=== PATIENT | female | born 2000 ===

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

== ENCOUNTER 2022-02-04 06:09 | Inpatient (IN) | payer OTHER ==
--- NOTE | 2022-02-04 07:14 | History and Physical Report ---
History of Present Illness Date of examination: 02/04/22 Date of admission: 02/04/2022 Chief complaint: Contractions History of present illness: 21-year-old at 42-4/7 weeks gestation presents to OB triage reporting regular and painful contractions every 5 minutes. There is no vaginal bleeding or leakage of fluid and there is good movement. In OB triage, cervical exam was 4/50%/-2. As this patient is in early labor with a postterm , she is admitted to labor and delivery for augmentation of labor. Past History Past Medical History: no pertinent history Past Surgical History: no surgical history Family/Genetic History: none Social history: no significant social history - Obstetrical History Expected Date of Delivery: 01/17/22 Actual Gestation: 42 Week(s) 4 Day(s) : 2 Para: 1 Hx # Term Pregnancies: 1 Medications and Allergies Allergies Allergy/AdvReac Type Severity Reaction Status Date / Time No Known Allergies Allergy Verified 04/11/19 10:27 Home Medications Medication Instructions Recorded Confirmed Last Taken Type Vit-Fe Fumar-FA [ 1 tab PO DAILY 03/20/19 04/12/19 03/20/19 History Vitamin] HYDROcodone/APAP 5-325 [[place]gar 1 each PO Q4HR PRN #15 tablet 04/13/19 Unknown Rx 5/325] Ibuprofen [Motrin] 800 mg PO Q8HR PRN #40 tablet 04/13/19 Unknown Rx Review of Systems All systems: negative - Physical Exam Breasts: Positive: normal Cardiovascular: Regular rate Lungs: Positive: Normal air movement Abdomen: Positive: normal appearance Genitourinary (Female): Positive: normal external genitalia, normal perenium Vulva: both: normal Vagina: Positive: normal moisture Uterus: Positive: enlarged Adnexa: both: normal Anus/Rectum: Positive: normal perianal skin Extremities: Positive: normal Deep Tendon Reflex Grade: Normal +2 - Obstetrical FHR: category 1 Uterine Contraction Monitor Mode: External Cervical Dilatation: 4 Cervical Effacement Percentage: 50 station: -2 Uterine Contraction Frequency (min): 5 Uterine Contraction Pattern: Regular Results All other labs normal. Ultrasound: pending Assessment and Plan - Patient Problems (1) 42 weeks gestation of Current Visit: Yes Status: Acute Plan to address problem: This patient has limited care. GBS status is unknown. As such, we will treat with penicillin only if there are any risk factors per 2010 CDC MMWR guidelines. Currently, there are no risk factors. (2) Post term , 42 weeks Current Visit: Yes Status: Acute Plan to address problem: Admit patient to labor delivery. The patient is in early labor. Augment with Pitocin. (3) Active labor at term Current Visit: Yes Status: Acute Plan to address problem: This patient is in early labor. Admit to labor and delivery. Augment with Pitocin.
[2022-02-04] MEDS ORDERED: ePHEDrine SULFATE 50 MG/1 ML INJ IV PRN ×2 (07:30→12:30)
[2022-02-04] MEDS ORDERED: TERBUTALINE 1 MG/1 ML INJ SUB-Q PRN (08:00)
[2022-02-04] MEDS ORDERED: CARBOPROST TROMETHAMINE 250 MCG/1 ML INJ IM PRN (08:00)
[2022-02-04] MEDS ORDERED: BUTORPHANOL 2 MG/1 ML INJ IV PRN (08:00)
[2022-02-04] MEDS ORDERED: LACTATED RINGERS 1,000 ML IV SCH (08:00)
[2022-02-04] MEDS ORDERED: ACETAMINOPHEN 325 MG TAB PO PRN (08:00)
[2022-02-04] MEDS ORDERED: fentaNYL 100 MCG/2 ML INJ IV PRN (08:00)
[2022-02-04] MEDS ORDERED: METHYLERGONOVINE MALEATE 0.2 MG/ML VIAL IM PRN (08:00)
[2022-02-04] MEDS ORDERED: OXYTOCIN DRIP 30 UNITS/500 ML BAG IV SCH (08:00)
--- NOTE | 2022-02-04 08:31 | Ultrasound Report ---
ULTRASOUND OBSTETRIC COMPLETE INDICATION / CLINICAL INFORMATION: Abdominal pain, labor. Clinical Gestational Age (GA) in weeks, days: 42 weeks 4 days TECHNIQUE: Transabdominal. COMPARISON: None available. FINDINGS: NUMBER: Single PRESENTATION: cephalic PLACENTA: Not imaged MATERNAL ADNEXA: No significant abnormality. AMNIOTIC FLUID VOLUME: decreased AMNIOTIC FLUID INDEX (HAROLDO) in cm (if measured): 6.2 MEASUREMENTS: - Biparietal Diameter = 9.1 cm = 37 weeks 0 days - Head Circumference = 33.1 cm = 37 weeks 5 days - Abdominal Circumference = 34.4 cm = 38 weeks 2 days - Femur Length = 7.3 cm = 37 weeks 1 day - Estimated Weight (in grams, if calculated): 3321 - Heart Rate (beats per minute): 143 ADDITIONAL FINDINGS: None. AVERAGE ULTRASOUND AGE (AUA) in weeks, days = 37 weeks 4 days IMPRESSION: 1. Single intrauterine with AUA of 37 weeks 4 days. 2. Diminished amniotic fluid index, measuring 6.2 cm. 3. No other significant abnormality. Signer Name: Maurizio Fuller MD Signed: 02/04/2022 8:14 AM Workstation Name: [id number]
[2022-02-04 09:00] LABS: Hematocrit 36.4 % (30.3-42.9); Hemoglobin 11.8 gm/dl (10.1-14.3); Mean Corpuscular HGB Conc 33 % (30-34); Mean Corpuscular Volume 90 fl (79-97); Platelet Count 312 K/mm3 (140-440); Red Blood Count 4.04 M/mm3 (3.65-5.03); Red Cell Distribution Width 14.6 % (13.2-15.2)
[2022-02-04] MEDS ORDERED: AMPICILLIN/NS 2 GM/100 ML 2 GM/100 ML BAG IV ONE (09:55)
[2022-02-04] MEDS ORDERED: AMPICILLIN/NS 2 GM/100 ML 2 GM/100 ML BAG IV SCH (10:00)
[2022-02-04 11:30] LABS: Hepatitis C Virus Antibody Non-Reactive (NonReactive)
[2022-02-04] MEDS ORDERED: MINERAL OIL 30 ML ORAL LIQD ONE (11:31)
[2022-02-04] MEDS ORDERED: miSOPROStol 200 MCG TAB ONE (11:31)
--- NOTE | 2022-02-04 12:22 | Anesthesia Consultation ---
Anesthesia Consult and Med Hx Date of service: 02/04/22 - Airway Anesthetic Teeth Evaluation: Good ROM Head & Neck: Adequate Mental/Hyoid Distance: Adequate Mallampati Class: Class II Intubation Access Assessment: Probably Good - Pulmonary Exam CTA: Yes - Cardiac Exam Cardiac Exam: RRR - Pre-Operative Health Status ASA Pre-Surgery Classification: ASA3 Proposed Anesthetic Plan: Epidural - Pulmonary Hx Asthma: No COPD: No Hx Pneumonia: No - Cardiovascular System Hx Hypertension: No - Central Nervous System Hx Seizures: No Hx Psychiatric Problems: No - Endocrine Hx Renal Disease: No Hx End Stage Renal Disease: No Hx Hypothyroidism: No Hx Hyperthyroidism: No - Hematic Hx Anemia: No Hx Sickle Cell Disease: No - Other Systems Hx Alcohol Use: No Hx Obesity: Yes
[2022-02-04] MEDS ORDERED: NALOXONE 2 MG/2 ML INJ IV PRN (12:30)
--- NOTE | 2022-02-04 12:32 | Progress Note ---
Assessment and Plan A: IUP @ 42 4/7 Weeks Category I Tracing No Care Early Labor GBS unknown P: AROM Internals x 2 Continue Pitocin Augmentation Continue GBS Prophylaxis Prepare for Epidural Anesthesia Subjective - Subjective Date of service: 02/04/22 Patient reports: movement normal, contractions, other (Requesting epidural anesthesia) Objective - Vital Signs Vital Signs: Vital Signs - 12hr 02/04/22 02/04/22 02/04/22 08:28 08:29 08:34 Temperature Pulse Rate 71 75 73 Respiratory Rate Blood Pressure 144/72 O2 Sat by Pulse 98 98 Oximetry 02/04/22 02/04/22 02/04/22 08:39 08:44 08:47 Temperature 97.9 F Pulse Rate 88 94 H Respiratory 18 Rate Blood Pressure O2 Sat by Pulse 99 98 98 Oximetry 02/04/22 02/04/22 02/04/22 08:49 08:54 08:59 Temperature Pulse Rate 98 H 88 82 Respiratory Rate Blood Pressure O2 Sat by Pulse 98 98 99 Oximetry 02/04/22 02/04/22 02/04/22 09:04 09:30 09:35 Temperature Pulse Rate 92 H 83 86 Respiratory Rate Blood Pressure 116/60 O2 Sat by Pulse 99 98 98 Oximetry 02/04/22 02/04/22 02/04/22 09:40 09:45 09:50 Temperature Pulse Rate 86 79 87 Respiratory Rate Blood Pressure O2 Sat by Pulse 100 99 99 Oximetry 02/04/22 02/04/22 02/04/22 09:55 10:00 10:05 Temperature Pulse Rate 86 81 88 Respiratory Rate Blood Pressure O2 Sat by Pulse 99 97 99 Oximetry 02/04/22 02/04/22 02/04/22 10:06 10:10 10:15 Temperature Pulse Rate 88 84 86 Respiratory Rate Blood Pressure 124/70 O2 Sat by Pulse 98 97 Oximetry 02/04/22 02/04/22 02/04/22 10:20 10:25 10:30 Temperature Pulse Rate 83 77 87 Respiratory Rate Blood Pressure O2 Sat by Pulse 99 98 98 Oximetry 02/04/22 02/04/22 02/04/22 10:35 10:40 10:45 Temperature Pulse Rate 100 H 86 70 Respiratory Rate Blood Pressure O2 Sat by Pulse 98 98 99 Oximetry 02/04/22 02/04/22 02/04/22 10:50 10:55 10:56 Temperature Pulse Rate 75 101 H 115 H Respiratory Rate Blood Pressure O2 Sat by Pulse 91 99 92 Oximetry 02/04/22 02/04/22 02/04/22 11:00 11:05 11:07 Temperature Pulse Rate 70 70 74 Respiratory Rate Blood Pressure 134/84 O2 Sat by Pulse 100 98 Oximetry 02/04/22 02/04/22 02/04/22 11:10 11:11 11:15 Temperature Pulse Rate 71 93 H 75 Respiratory Rate Blood Pressure O2 Sat by Pulse 99 92 98 Oximetry 02/04/22 02/04/22 02/04/22 11:20 11:25 11:30 Temperature Pulse Rate 68 70 69 Respiratory Rate Blood Pressure O2 Sat by Pulse 99 98 98 Oximetry 02/04/22 02/04/22 02/04/22 11:35 11:36 11:40 Temperature Pulse Rate 68 71 93 H Respiratory Rate Blood Pressure 164/78 O2 Sat by Pulse 98 98 Oximetry 02/04/22 02/04/22 02/04/22 11:45 11:50 11:54 Temperature Pulse Rate 69 71 90 Respiratory Rate Blood Pressure O2 Sat by Pulse 98 99 92 Oximetry 02/04/22 02/04/22 02/04/22 11:55 12:00 12:05 Temperature Pulse Rate 70 70 80 Respiratory Rate Blood Pressure 143/99 O2 Sat by Pulse 98 98 98 Oximetry 02/04/22 02/04/22 02/04/22 12:10 12:15 12:20 Temperature Pulse Rate 81 77 72 Respiratory Rate Blood Pressure O2 Sat by Pulse 98 98 98 Oximetry 02/04/22 12:25 Temperature Pulse Rate 89 Respiratory Rate Blood Pressure O2 Sat by Pulse 99 Oximetry - Exam Breasts: normal Cardiovascular: Regular rate Lungs: Normal air movement Abdomen: Present: soft Uterus: Present: normal, firm, fundal height above umbilicus FHR: category 1 Uterine Contraction Monitor Mode: Internal Cervical Dilatation: 5 (Small amount of clear fluid upon AROM at 1224) Cervical Effacement Percentage: 80 station: -2 Uterine Contraction Pattern: Regular Uterine Tone Measurement Phase: Resting Uterine Contraction Intensity: Moderate Extremities: normal - Labs Labs: Abnormal Labs 02/04/22 08:20 WBC 12.9 H Laboratory Results - last 24 hr 02/04/22 02/04/22 02/04/22 08:20 08:20 08:20 WBC 12.9 H RBC 4.04 Hgb 11.8 Hct 36.4 MCV 90 MCH 29 MCHC 33 RDW 14.6 Plt Count 312 Syphilis IgG/IgM Ab Nonreactive SARS-CoV-2 (PCR) Hep Bs Antigen Hepatitis C Antibody Non-reactive HIV 1&2 Antibody Rapid HIV P24 Antigen Rubella IgG Antibody Immune Blood Type O POSITIVE Antibody Screen Negative 02/04/22 02/04/22 02/04/22 08:20 08:20 09:57 WBC RBC Hgb Hct MCV MCH MCHC RDW Plt Count Syphilis IgG/IgM Ab SARS-CoV-2 (PCR) Negative Hep Bs Antigen Non-reactive Hepatitis C Antibody HIV 1&2 Antibody Rapid Non react HIV P24 Antigen Non react Rubella IgG Antibody Blood Type Antibody Screen
--- NOTE | 2022-02-04 12:40 | Progress Note ---
Labor Epidural - Labor Epidural Start Time: 12:30 Stop Time: 12:33 Performed by:: TRENT MATTHEW Procedure: Patient is requesting epidural for labor pain. H&P, and labs reviewed. Procedure explained, questions answered, consent obtained. Patient in sitting position with blood pressure cuff and pulse ox on and working. Timeout performed immediately before start of procedure. Sterile Chloraprep prep/drape. Lidocaine skin wheal at L[3]-L[4]. 17-gauge tuohy epidural needle advanced to [id number] with saline at [7] cm. 25-gauge spinal needle advanced until clear, free-flowing CSF. Intrathecal dexmedetomidine [5] mcg administered and needle removed. Epidural catheter advanced to [12] cm, negative aspiration for blood and csf, negative test dose 3 ml 1.5% lidocaine with epinephrine. Sterile sponge and tegaderm applied, followed by tape reinforcement. Patient tolerated procedure well.
[2022-02-04] MEDS ORDERED: fentaNYL-BUPIV 2 MCG/ML-0.125% 200 MCG/100 ML BAG EPIDURAL SCH (13:00)
[2022-02-04] MEDS ORDERED: AMPICILLIN/NS 1 GM/50 ML 1 GM/50 ML BAG IV SCH (14:00)
--- NOTE | 2022-02-04 14:37 | Procedure Note ---
OB Delivery Note - Delivery Date of Delivery: 02/04/22 (1407) Surgeon: JAELYN KEARNS Estimated blood loss: other (150) - Vaginal Delivery presentation: vertex Delivery position: OA Intrapartum events: no care, postterm- > or = 42 weeks Delivery induction: none Delivery augmentation: rupture of membranes, pitocin Delivery monitor: internal FHT, internal uterine Route of delivery: Delivery placenta: spontaneous Delivery cord: 3 umbilical vessels Episiotomy: none Delivery laceration: none Anesthesia: epidural Delivery comments: of a live 6'14 male infant over a intact perineum under epidural anesthesia with Apgars of 8 and 9 at 1407 on 02/04/2022. Infant directly to maternal abd/chest, skin to skin contact. Delayed cord clamping and cutting; Cord cut by patient. Spontaneous delivery of the placenta complete and intact with Deng side presenting at 1415. Fundus is firm and midline located 5 below the U. Cord blood collected; Placenta discarded. GBS prophylaxis x 1.
[2022-02-04] MEDS ORDERED: LANOLIN/ZINC/DIMETHICONE (LANSINOH) 7 GM TP PRN (15:00)
[2022-02-04] MEDS ORDERED: WITCH HAZEL/ GLYCERIN PAD TP PRN (15:00)
[2022-02-04] MEDS ORDERED: diphenhydrAMINE 25 MG CAP PO PRN (15:00)
[2022-02-04] MEDS ORDERED: oxyCODONE /ACETAMINOPHEN 5-325MG TAB PO PRN (15:30)
[2022-02-04 16:37] LABS: Bilirubin,Urine NEG (Negative); Blood,Urine NEG (Negative); Color,Urine Straw (Yellow); Protein,Urine <15 mg/dL mg/dL (Negative); Urobilinogen,Urine < 2.0 mg/dL (<2.0)
[2022-02-04 16:44] LABS: Amphetamine Screen,Urine Negative; Benzodiazepines Screen,Urine Negative; Cocaine Screen,Urine Negative; Methadone Screen,Urine Negative; Opiate Screen,Urine Negative
[2022-02-04 16:55] LABS: Cannabinoid Screen,Urine Positive
[2022-02-04] MEDS: IBUPROFEN 800 MG TAB PO SCH (20:40)
[2022-02-05] MEDS: IBUPROFEN 800 MG TAB PO SCH ×2 (03:02→09:12)
[2022-02-05 06:14] LABS: Hematocrit 34.5 % (30.3-42.9); Hemoglobin 11.3 gm/dl (10.1-14.3)
--- NOTE | 2022-02-05 06:34 | Post Anesthesia Evaluation ---
- Post Anesthesia Evaluation Patient Participated: Yes Airway Patent: Yes Stable Respiratory Function: Yes Nausea/Vomiting: No Temp > 96.8F: Yes Pain Manageable: Yes Adequeate Hydration: Yes Anesthesia Complications: No Block Receding Appropriately: Yes
[2022-02-05] MEDS ORDERED: PRENATAL VIT27-FE FUMARATE-FOLIC ACID VIT TAB PO SCH (10:00)
--- NOTE | 2022-02-05 16:28 | Discharge Summary ---
Providers - Providers Date of Admission: 02/04/22 06:10 Date of discharge: 02/06/22 Attending physician: LEORA CORRALES MD 02/04/22 17:36 Consult to Case Management [CONS] Routine Services Needed at Discharge: Other Notified:: [id number] Additional Physician Instructions: postive THC and no care Primary care physician: LEORA CORRALES MD Hospitalization Reason for admission: active labor Delivery: Episiotomy: none Laceration: none Other procedures: none complications: none Discharge diagnosis: IUP at term delivered [place] baby: male Condition at discharge: Good Disposition: HOME / SELF CARE / HOMELESS Plan - Discharge Medications Prescriptions: Ibuprofen [Motrin 800 MG tab] 800 mg PO Q8HR #30 tablet - Provider Discharge Summary Activity: no sex for 6 weeks, no heavy lifting 4 weeks, no strenuous exercise Diet: routine Instructions: routine Additional instructions: [] Smoking cessation referral if applicable(refer to patient education folder for contact #) [] Refer to [facility]'s [facility] Booklet Call your doctor immediately for: * Fever > 100.5 * Heavy vaginal bleeding ( >1 pad per hour) * Severe persistent headache * Shortness of breath * Reddened, hot, painful area to leg or breast * Drainage or odor from incision. * Keep incision clean and dry at all times and follow doctor's instructions regarding bathing/showering - Follow up plan Follow up: BASILIO HESS MD [Staff Physician] - 6 Weeks LEORA CORRALES MD [Primary Care Provider] - 6 Weeks
[2022-02-05 17:33] VITALS: BP 124/55
== END 2022-02-05 20:15 | disposition home or self-care (01) | DRG 807 ==
LOC: TRG 06:09 → APU 06:10 → TRG 07:32 → LD 09:13 → OB 16:15
PROVIDERS: ADMIT Obstetrics & Gynecology Gynecology; ATTEND Obstetrics & Gynecology Gynecology
PROC: 10E0XZZ Delivery of Products of Conception, External Approach (ICD-10-PCS; principal; 2022-02-04)
PROC: 10907ZC Drainage of Amniotic Fluid, Therapeutic from Products of Conception, Via Natural or Artificial Opening (ICD-10-PCS; 2022-02-04)
PROC: 3E0R3BZ Introduction of Anesthetic Agent into Spinal Canal, Percutaneous Approach (ICD-10-PCS; 2022-02-04)
PROC: 00HU33Z Insertion of Infusion Device into Spinal Canal, Percutaneous Approach (ICD-10-PCS; 2022-02-04)
DX: O48.0 Post-term pregnancy (principal); Z37.0 Single live birth; Z3A.42 42 weeks gestation of pregnancy; Z20.822 Contact with and (suspected) exposure to COVID-19
CPT/HCPCS: 36415; 76816; 80307; 81001; 85014; 85018; 85027; 86592; 86706; 86762; 86803; 86850; 86900; 86901; 87806; 96360; 96361; 96365; 96374; G0378; J0290; J2590; J3010; J7120; U0003